=== PATIENT | male | born 1945 | race Caucasian/White ===

== ENCOUNTER 2017-01-06 15:34 | Emergency (ER) | payer BC, MEDICARE ==
[2017-01-06 16:06] VITALS: RESP 18
[2017-01-06] MEDS ORDERED: PROPARACAINE 0.5% OPHTH DROPS 15 ML BTL BOTH EYES STA (16:56)
[2017-01-06] MEDS ORDERED: ERYTHROMYCIN 5 MG/GM OPHTH OINT 3.5 GM TUBE RIGHT EYE SCH (18:00)
--- NOTE | 2017-01-06 18:04 | ED ---
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 Patient reports he thinks a piece of metal went behind his safety goggles and in his eye. Patient wears glasses, not contacts. Reports no change in vision, just eye pain and continuous watering. Reports tetanus is up to date. - Related Data Home Medications Medication Instructions Recorded Confirmed Allopurinol [Zyloprim] 100 mg PO BID 01/26/14 03/05/15 Atenolol 50 mg PO DAILY 01/26/14 03/05/15 Baclofen [Lioresal] 20 mg PO BID 01/26/14 03/05/15 Citalopram Hydrobromide [CeleXA] 20 mg PO DAILY 01/26/14 03/05/15 Clopidogrel Bisulfate [Plavix] 75 mg PO DAILY 01/26/14 03/05/15 Indapamide 2.5 mg PO HS 01/26/14 03/05/15 Levothyroxine Sodium [Synthroid] 75 mcg PO DAILY 01/26/14 03/05/15 Atorvastatin [Lipitor] 40 mg PO HS 03/05/15 03/05/15 Cholecalciferol [Vitamin D3] 2,000 unit PO DAILY 03/05/15 03/05/15 Enalapril [Vasotec] 10 mg PO BID 03/05/15 03/05/15 Furosemide [Lasix] 20 mg PO DAILY 03/05/15 03/05/15 Lansoprazole [Prevacid] 30 mg PO DAILY 03/05/15 03/05/15 Ubidecarenone [Co Q-10] 100 mg PO MOWEFR 03/05/15 03/05/15 Zolpidem [Ambien] 10 mg PO HS PRN 03/05/15 03/05/15 Previous Rx's Medication Instructions Recorded Aspirin 81 mg PO DIRECTED #30 chew 03/06/15 Allergies Allergy/AdvReac Type Severity Reaction Status Date / Time No Known Allergies Allergy Verified 01/06/17 16:06 Review of Systems ROS Statement: Those systems with pertinent positive or pertinent negative responses have been documented in the HPI. ROS Other: All systems not noted in ROS Statement are negative. Constitutional: Denies: chills Eyes: Reports: eye pain ENT: Reports: throat pain. 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 Absent: scleral icterus, periorbital swelling ENT exam: Present: normal exam, mucous membranes moist Neck exam: Present: normal inspection. Absent: tenderness, meningismus, lymphadenopathy Respiratory exam: Present: normal lung sounds bilaterally. Absent: respiratory distress, wheezes, rales, rhonchi, stridor Cardiovascular Exam: Present: regular rate, normal rhythm, normal heart sounds. Absent: systolic murmur, diastolic murmur, rubs, gallop, clicks GI/Abdominal exam: Present: soft, normal bowel sounds. Absent: distended, tenderness, guarding, rebound, rigid Back exam: Present: normal inspection Neurological exam: Present: alert, oriented X3 Psychiatric exam: Present: normal affect, normal mood Skin exam: Present: warm, dry, intact, normal color. 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 Patient reports he thinks a piece of metal went behind his safety goggles and in his eye. Eye was examined under flourescein dye and UV light, evidence of small metal foreign body embedded in cornea at 6 oclock position. Patient eye was examined and using rosa brush it was removed. Patient tolerated procedure well. Was discharged with erythromycin ointment. Return parameters discussed. Disposition Clinical Impression: Foreign body in eyeball, right Disposition: HOME SELF-CARE Condition: Good Instructions: Eye Foreign Body (ED) Additional Instructions: Advised to use ophthalmic ointment every 4 hours for the next 2 days. Patient should follow-up with cylinder machine operator if symptoms continue to persist. Return to the emergency department if any alarming signs or symptoms occur. Referrals: Blanca Avendano DO [Primary Care Provider] - 1-2 days Time of Disposition: 18:04
[2017-01-06 18:12] VITALS: BP 114/65; PULSE 57; TEMP 97.5
== END 2017-01-06 18:24 | disposition home or self-care (01) ==
LOC: EC 15:34
DX: T15.81XA Foreign body in other and multiple parts of external eye, right eye, initial encounter (principal); E78.5 Hyperlipidemia, unspecified; I10 Essential (primary) hypertension; F41.9 Anxiety disorder, unspecified; Z87.891 Personal history of nicotine dependence; Z79.02 Long term (current) use of antithrombotics/antiplatelets; Z79.899 Other long term (current) drug therapy; Z86.73 Personal history of transient ischemic attack (TIA), and cerebral infarction without residual deficits
CPT/HCPCS: 99282

== ENCOUNTER 2017-04-01 06:15 | Emergency (ER) | payer BC, MEDICARE ==
[2017-04-01] MEDS ORDERED: SODIUM CHLORIDE 0.9% 500 ML IV STA (06:29)
[2017-04-01] MEDS ORDERED: ONDANSETRON 4 MG/2 ML VIAL IVP STA (06:29)
[2017-04-01 06:30] LABS: Glucose,Whole Blood 111 mg/dL (75-99)
--- NOTE | 2017-04-01 06:45 | ED ---
General Adult HPI - General Source: patient, family, RN notes reviewed Mode of arrival: wheelchair Limitations: no limitations <Tai Archibald - Last Filed: 04/01/17 07:08> <Gray Rosales - Last Filed: 04/01/17 09:20> - General Chief complaint: Weakness Stated complaint: Weakness, and shaking Time Seen by Provider: 04/01/17 06:19 - History of Present Illness Initial comments: 71-year-old male with history of hypertension and remote history of CVA presents with generalized weakness and lightheadedness. Patient woke up this morning approximate 6 AM. Had these symptoms shortly after waking. Denied headache. Denied focal weakness. Denied chest pain or shortness of breath. Denies abdominal pain. Denied dysuria. Denied fever or chills. Patient states that approximately one month ago he was placed back on furosemide for bilateral lower extremity swelling. He did have a problem with this medication the past causing hypokalemia. Patient denies any other medication changes. Denies any change in his diet. States he had a normal dinner last night. No breakfast this morning. He did complain of some nausea. No vomiting. No rectal bleeding. (Tai Archibald) - Related Data Home Medications Medication Instructions Recorded Confirmed Allopurinol [Zyloprim] 100 mg PO BID 01/26/14 03/05/15 Atenolol 50 mg PO DAILY 01/26/14 03/05/15 Baclofen [Lioresal] 20 mg PO BID 01/26/14 03/05/15 Citalopram Hydrobromide [CeleXA] 20 mg PO DAILY 01/26/14 03/05/15 Clopidogrel Bisulfate [Plavix] 75 mg PO DAILY 01/26/14 03/05/15 Indapamide 2.5 mg PO HS 01/26/14 03/05/15 Levothyroxine Sodium [Synthroid] 75 mcg PO DAILY 01/26/14 03/05/15 Atorvastatin [Lipitor] 40 mg PO HS 03/05/15 03/05/15 Cholecalciferol [Vitamin D3] 2,000 unit PO DAILY 03/05/15 03/05/15 Enalapril [Vasotec] 10 mg PO BID 03/05/15 03/05/15 Furosemide [Lasix] 20 mg PO DAILY 03/05/15 03/05/15 Lansoprazole [Prevacid] 30 mg PO DAILY 03/05/15 03/05/15 Ubidecarenone [Co Q-10] 100 mg PO MOWEFR 03/05/15 03/05/15 Zolpidem [Ambien] 10 mg PO HS PRN 03/05/15 03/05/15 Previous Rx's Medication Instructions Recorded Aspirin 81 mg PO DIRECTED #30 chew 03/06/15 Allergies Allergy/AdvReac Type Severity Reaction Status Date / Time No Known Allergies Allergy Verified 04/01/17 06:20 Review of Systems ROS Other: All systems not noted in ROS Statement are negative. <Tai Archiabld - Last Filed: 04/01/17 07:08> ROS Other: All systems not noted in ROS Statement are negative. <Gray Rosales - Last Filed: 04/01/17 09:20> ROS Statement: Those systems with pertinent positive or pertinent negative responses have been documented in the HPI. 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 History of Any Multi-Drug Resistant Organisms: None Reported Past Surgical History: No Surgical Hx Reported Additional Past Surgical History / Comment(s): cyst Past Psychological History: Anxiety Smoking Status: Former smoker Past Alcohol Use History: None Reported Past Drug Use History: None Reported <Tai Archibald - Last Filed: 04/01/17 07:08> General Exam Limitations: no limitations General appearance: alert, in no apparent distress Head exam: Present: atraumatic, normocephalic Eye exam: Present: normal appearance, PERRL ENT exam: Present: normal exam, mucous membranes dry Neck exam: Present: normal inspection, full ROM. Absent: tenderness, meningismus Respiratory exam: Present: normal lung sounds bilaterally. Absent: respiratory distress, wheezes Cardiovascular Exam: Present: regular rate, normal rhythm GI/Abdominal exam: Present: soft. Absent: distended, tenderness, guarding Extremities exam: Present: normal inspection, full ROM, normal capillary refill , pedal edema. Absent: tenderness Neurological exam: Present: alert, oriented X3, CN II-XII intact, motor sensory deficit Psychiatric exam: Present: normal affect, normal mood Skin exam: Present: warm, dry. Absent: cyanosis, diaphoretic <LyndamariTai Wally - Last Filed: 04/01/17 07:08> Course <RuthielilianaTai Wally - Last Filed: 04/01/17 07:08> <Gray Rosales - Last Filed: 04/01/17 09:20> Vital Signs 04/01/17 04/01/17 04/01/17 06:16 07:05 08:00 Temperature 97.5 F L Pulse Rate 79 96 65 Respiratory 16 18 20 Rate Blood Pressure 140/75 144/86 148/69 O2 Sat by Pulse 95 94 L 97 Oximetry - Reevaluation(s) Reevaluation #1: 04/01/17 06:44 Patient's care is signed out to the oncoming physician. All laboratory studies and chest x-ray is pending at this time. (Tai Archibald) EKG Findings - EKG Comments: EKG Findings:: EKG shows sinus rhythm, first-degree AV block, ventricular rate 76, [place] interval 222, castration 86, QTC 434, there is inverted T waves in V3, this is unchanged from EKG in 2015 <DraganTai Wally - Last Filed: 04/01/17 07:08> Medical Decision Making <RuthielilianaTai Wally - Last Filed: 04/01/17 07:08> - Lab Data Result diagrams: 04/01/17 06:30 04/01/17 06:30 <Gray Rosales - Last Filed: 04/01/17 09:20> - Medical Decision Making Repeat EKG was done the patient's EKG shows sinus rhythm with a first-degree AV block at 60 bpm [place] interval is 214 QRS is 94 Q-T intervals 46 QTC is 431. Patient's EKG shows no ST segment elevation or depression or T-wave abdomen is noted. I reevaluated the patient he was no longer feeling weak he was able to ambulate through the ER and had no complaints at this time.patient stated he thinks his anxiety might have got the best of him this morning (Gray Rosales) - Lab Data Lab Results 04/01/17 04/01/17 04/01/17 Range/Units 06:29 06:30 06:30 WBC 6.6 (3.8-10.6) k/uL RBC 5.26 (4.30-5.90) m/uL Hgb 16.3 (13.0-17.5) gm/dL Hct 50.0 (39.0-53.0) % MCV 95.1 (80.0-100.0) fL MCH 31.0 (25.0-35.0) pg MCHC 32.6 (31.0-37.0) g/dL RDW 14.5 (11.5-15.5) % Plt Count 166 (150-450) k/uL Neutrophils % 60 % Lymphocytes % 23 % Monocytes % 7 % Eosinophils % 7 % Basophils % 1 % Neutrophils # 4.0 (1.3-7.7) k/uL Lymphocytes # 1.5 (1.0-4.8) k/uL Monocytes # 0.5 (0-1.0) k/uL Eosinophils # 0.5 (0-0.7) k/uL Basophils # 0.0 (0-0.2) k/uL PT (9.0-12.0) sec INR (<1.2) APTT (22.0-30.0) sec Sodium (137-145) mmol/L Potassium (3.5-5.1) mmol/L Chloride (98-107) mmol/L Carbon Dioxide (22-30) mmol/L Anion Gap mmol/L BUN (9-20) mg/dL Creatinine (0.66-1.25) mg/dL Est GFR (MDRD) Af Amer (>60 ml/min/1.73 sqM) Est GFR (MDRD) Non-Af (>60 ml/min/1.73 sqM) Glucose (74-99) mg/dL POC Glucose (mg/dL) 111 H (75-99) mg/dL POC Glu Tool Engine Lathe Set Up Operator ID Briana Langston Plasma Lactic Acid Bj (0.7-2.0) mmol/L Calcium (8.4-10.2) mg/dL Phosphorus (2.5-4.5) mg/dL Magnesium (1.6-2.3) mg/dL Total Bilirubin (0.2-1.3) mg/dL AST (17-59) U/L ALT (21-72) U/L Alkaline Phosphatase (38-126) U/L Total Creatine Kinase 293 H (55-170) U/L CK-MB (CK-2) 7.8 H* (0.0-2.4) ng/mL CK-MB (CK-2) Rel Index 2.7 Troponin I <0.012 (0.000-0.034) ng/mL Total Protein (6.3-8.2) g/dL Albumin (3.5-5.0) g/dL TSH (0.465-4.680) mIU/L Urine Color Urine Appearance (Clear) Urine pH (5.0-8.0) Ur Specific [place] (1.001-1.035) Urine Protein (Negative) Urine Glucose (UA) (Negative) Urine Ketones (Negative) Urine Blood (Negative) Urine Nitrite (Negative) Urine Bilirubin (Negative) Urine Urobilinogen (<2.0) mg/dL Ur Leukocyte Esterase (Negative) Urine RBC (0-5) /hpf Urine WBC (0-5) /hpf Urine Mucus (None) /hpf Blood Type Blood Type Recheck Antibody Screen Spec Expiration Date 04/01/17 04/01/17 04/01/17 Range/Units 06:30 06:30 07:05 WBC (3.8-10.6) k/uL RBC (4.30-5.90) m/uL Hgb (13.0-17.5) gm/dL Hct (39.0-53.0) % MCV (80.0-100.0) fL MCH (25.0-35.0) pg MCHC (31.0-37.0) g/dL RDW (11.5-15.5) % Plt Count (150-450) k/uL Neutrophils % % Lymphocytes % % Monocytes % % Eosinophils % % Basophils % % Neutrophils # (1.3-7.7) k/uL Lymphocytes # (1.0-4.8) k/uL Monocytes # (0-1.0) k/uL Eosinophils # (0-0.7) k/uL Basophils # (0-0.2) k/uL PT 11.6 (9.0-12.0) sec INR 1.2 H (<1.2) APTT 25.9 (22.0-30.0) sec Sodium 139 (137-145) mmol/L Potassium 4.6 (3.5-5.1) mmol/L Chloride 105 (98-107) mmol/L Carbon Dioxide 26 (22-30) mmol/L Anion Gap 8 mmol/L BUN 36 H (9-20) mg/dL Creatinine 1.19 (0.66-1.25) mg/dL Est GFR (MDRD) Af Amer >60 (>60 ml/min/1.73 sqM) Est GFR (MDRD) Non-Af 60 (>60 ml/min/1.73 sqM) Glucose 111 H (74-99) mg/dL POC Glucose (mg/dL) (75-99) mg/dL POC Glu Tool Engine Lathe Set Up Operator ID Plasma Lactic Acid Bj 1.4 (0.7-2.0) mmol/L Calcium 9.3 (8.4-10.2) mg/dL Phosphorus 3.2 (2.5-4.5) mg/dL Magnesium 1.6 (1.6-2.3) mg/dL Total Bilirubin 0.5 (0.2-1.3) mg/dL AST 43 (17-59) U/L ALT 45 (21-72) U/L Alkaline Phosphatase 91 (38-126) U/L Total Creatine Kinase (55-170) U/L CK-MB (CK-2) (0.0-2.4) ng/mL CK-MB (CK-2) Rel Index Troponin I (0.000-0.034) ng/mL Total Protein 6.3 (6.3-8.2) g/dL Albumin 3.9 (3.5-5.0) g/dL TSH 3.500 (0.465-4.680) mIU/L Urine Color Urine Appearance (Clear) Urine pH (5.0-8.0) Ur Specific [place] (1.001-1.035) Urine Protein (Negative) Urine Glucose (UA) (Negative) Urine Ketones (Negative) Urine Blood (Negative) Urine Nitrite (Negative) Urine Bilirubin (Negative) Urine Urobilinogen (<2.0) mg/dL Ur Leukocyte Esterase (Negative) Urine RBC (0-5) /hpf Urine WBC (0-5) /hpf Urine Mucus (None) /hpf Blood Type Blood Type Recheck Antibody Screen Spec Expiration Date 04/01/17 04/01/17 Range/Units 07:05 08:36 WBC (3.8-10.6) k/uL RBC (4.30-5.90) m/uL Hgb (13.0-17.5) gm/dL Hct (39.0-53.0) % MCV (80.0-100.0) fL MCH (25.0-35.0) pg MCHC (31.0-37.0) g/dL RDW (11.5-15.5) % Plt Count (150-450) k/uL Neutrophils % % Lymphocytes % % Monocytes % % Eosinophils % % Basophils % % Neutrophils # (1.3-7.7) k/uL Lymphocytes # (1.0-4.8) k/uL Monocytes # (0-1.0) k/uL Eosinophils # (0-0.7) k/uL Basophils # (0-0.2) k/uL PT (9.0-12.0) sec INR (<1.2) APTT (22.0-30.0) sec Sodium (137-145) mmol/L Potassium (3.5-5.1) mmol/L Chloride (98-107) mmol/L Carbon Dioxide (22-30) mmol/L Anion Gap mmol/L BUN (9-20) mg/dL Creatinine (0.66-1.25) mg/dL Est GFR (MDRD) Af Amer (>60 ml/min/1.73 sqM) Est GFR (MDRD) Non-Af (>60 ml/min/1.73 sqM) Glucose (74-99) mg/dL POC Glucose (mg/dL) (75-99) mg/dL POC Glu Tool Engine Lathe Set Up Operator ID Plasma Lactic Acid Bj (0.7-2.0) mmol/L Calcium (8.4-10.2) mg/dL Phosphorus (2.5-4.5) mg/dL Magnesium (1.6-2.3) mg/dL Total Bilirubin (0.2-1.3) mg/dL AST (17-59) U/L ALT (21-72) U/L Alkaline Phosphatase (38-126) U/L Total Creatine Kinase (55-170) U/L CK-MB (CK-2) (0.0-2.4) ng/mL CK-MB (CK-2) Rel Index Troponin I (0.000-0.034) ng/mL Total Protein (6.3-8.2) g/dL Albumin (3.5-5.0) g/dL TSH (0.465-4.680) mIU/L Urine Color Yellow Urine Appearance Clear (Clear) Urine pH 5.5 (5.0-8.0) Ur Specific [place] 1.019 (1.001-1.035) Urine Protein Negative (Negative) Urine Glucose (UA) Negative (Negative) Urine Ketones Negative (Negative) Urine Blood Negative (Negative) Urine Nitrite Negative (Negative) Urine Bilirubin Negative (Negative) Urine Urobilinogen <2.0 (<2.0) mg/dL Ur Leukocyte Esterase Trace H (Negative) Urine RBC 1 (0-5) /hpf Urine WBC 1 (0-5) /hpf Urine Mucus Rare H (None) /hpf Blood Type A Positive Blood Type Recheck CABO Indicated Antibody Screen NEGATIVE Spec Expiration Date 04/04/2017 - 230 Disposition <Tai Archibald - Last Filed: 04/01/17 07:08> Time of Disposition: 09:20 <Gray Rosales - Last Filed: 04/01/17 09:20> Clinical Impression: Generalized weakness, Anxiety Disposition: HOME SELF-CARE Condition: Good Instructions: Weakness (ED) Referrals: Blanca Avendano DO [Primary Care Provider] - 1-2 days
[2017-04-01 07:15] LABS: Basophils % (A) 1 %; CH 32.2; Eosinophils # (A) 0.5 k/uL (0-0.7); Eosinophils % (A) 7 %; HDW 2.46; HGB 16.3 gm/dL (13.0-17.5); Luc # (Auto) 0.16; Luc % (Auto) 2; Lymphocytes # (A) 1.5 k/uL (1.0-4.8); Lymphocytes % (A) 23 %; MCHC 32.6 g/dL (31.0-37.0); MCV 95.1 fL (80.0-100.0); Mean Platelet Volume 8.2; Monocytes # (A) 0.5 k/uL (0-1.0); Monocytes % (A) 7 %; Neutrophils % (A) 60 %; RBC 5.26 m/uL (4.30-5.90); RDW 14.5 % (11.5-15.5); WBC 6.6 k/uL (3.8-10.6)
--- NOTE | 2017-04-01 07:18 | XR ---
EXAMINATION TYPE: XR chest 2V DATE OF EXAM: 04/01/2017 COMPARISON: 03/05/2015 HISTORY: Weakness TECHNIQUE: Frontal and lateral views of the chest are obtained. FINDINGS: Heart and mediastinum are within normal limits. There is coarsening of interstitial markin gs. There is no heart failure. There is no pleural effusion. Bony thorax is intact. IMPRESSION: Pulmonary interstitial fibrosis without change compared to old exam. No heart failure.
[2017-04-01 07:19] LABS: INR 1.2 (<1.2); Partial Thromboplastin Time 25.9 sec (22.0-30.0); Prothrombin Time 11.6 sec (9.0-12.0)
[2017-04-01 07:24] LABS: ALT 45 U/L (21-72); AST 43 U/L (17-59); Alkaline Phosphatase 91 U/L (38-126); Anion Gap 8 mmol/L; Blood Urea Nitrogen 36 mg/dL (9-20); Calcium 9.3 mg/dL (8.4-10.2); Carbon Dioxide 26 mmol/L (22-30); Chloride 105 mmol/L (98-107); Glucose 111 mg/dL (74-99); Magnesium 1.6 mg/dL (1.6-2.3); Non-African American GFR(MDRD) 60 (>60 ml/min/1.73 sqM); Phosphorous 3.2 mg/dL (2.5-4.5); Potassium 4.6 mmol/L (3.5-5.1); Sodium 139 mmol/L (137-145); Total Bilirubin 0.5 mg/dL (0.2-1.3); Total Protein 6.3 g/dL (6.3-8.2)
[2017-04-01 07:42] LABS: Creatine Kinase 293 U/L (55-170)
[2017-04-01 07:55] LABS: Troponin I <0.012 ng/mL (0.000-0.034)
[2017-04-01 08:09] LABS: Creatine Kinase MB 7.8 ng/mL (0.0-2.4)
[2017-04-01 08:56] LABS: Appearance,Urine Clear (Clear); Bilirubin,Urine Negative (Negative); Glucose,Urine (UA) Negative (Negative); Ketones,Urine Negative (Negative); Leukocyte Esterase,Urine Trace (Negative); Mucus,Urine Rare /hpf; Nitrite,Urine Negative (Negative); PH, Urine 5.5 (5.0-8.0); Particle Count 1043; Protein,Urine Negative (Negative); RBC,Urine 1 /hpf (0-5); Specific Gravity,Urine 1.019 (1.001-1.035); UA Billing (MACRO vs. MICRO) MICRO; Urobilinogen,Urine <2.0 mg/dL (<2.0); WBC,Urine 1 /hpf (0-5)
[2017-04-01 08:59] VITALS: RESP 20
[2017-04-01 09:54] VITALS: BP 138/76; PULSE 78; TEMP 98
== END 2017-04-01 09:55 | disposition home or self-care (01) ==
LOC: EC 06:15
DX: R53.1 Weakness (principal); F41.9 Anxiety disorder, unspecified; I10 Essential (primary) hypertension; E78.5 Hyperlipidemia, unspecified; Z86.73 Personal history of transient ischemic attack (TIA), and cerebral infarction without residual deficits; Z87.891 Personal history of nicotine dependence; Z79.01 Long term (current) use of anticoagulants; Z79.899 Other long term (current) drug therapy
CPT/HCPCS: 99285; 96374; 96361 ×2; 36415; 93005; 86900; 86901; 80053; 82550; 82553; 83605; 83735; 84100; 84443; 84484; 85025; 85610; 85730; 86850; 81001; 71020; J2405

== ENCOUNTER 2017-09-18 09:38 | Day surgery (SDC) | payer BC, MEDICARE ==
[2017-09-14 09:01] VITALS: BMI 39.7
[~2017-09-18 09:38] MED LIST: LACTATED RINGERS 1,000 ML IV SCH; LIDOCAINE 1% 20 ML VIAL (10MG/ML) FOR IV START INTRADERMA PRN
[2017-09-18 10:20] VITALS: TEMP 96.7
[2017-09-18] MEDS ORDERED: PROPOFOL 10 MG/ML 20 ML VIAL IV ONE (12:35)
--- NOTE | 2017-09-18 12:35 | P.GSHP ---
History of Present Illness H&P Date: 09/18/17 Chief Complaint: Epigastric pain This a 71-year-old male who presents today for EGD. Patient's had some complaints of epigastric pain. Patient will be evaluated for gastritis. Past Medical History Past Medical History: CVA/TIA, Hyperlipidemia, Hypertension, Prostate Disorder, Thyroid Disorder Additional Past Medical History / Comment(s): States "stomach swells up",left side deficits from previous stroke, hx of gout History of Any Multi-Drug Resistant Organisms: None Reported Past Surgical History: Tonsillectomy Additional Past Surgical History / Comment(s): benign cyst removed Past Anesthesia/Blood Transfusion Reactions: No Reported Reaction Smoking Status: Former smoker - Past Family History Father Family Medical History: Cancer Brother(s) Family Medical History: Cancer Medications and Allergies Home Medications Medication Instructions Recorded Confirmed Type Allopurinol [Zyloprim] 100 mg PO BID 01/26/14 09/18/17 History Baclofen [Lioresal] 20 mg PO BID 01/26/14 09/14/17 History Citalopram Hydrobromide [CeleXA] 20 mg PO DAILY 01/26/14 09/14/17 History Clopidogrel Bisulfate [Plavix] 75 mg PO DAILY 01/26/14 09/14/17 History Levothyroxine Sodium [Synthroid] 75 mcg PO DAILY 01/26/14 09/14/17 History Atorvastatin [Lipitor] 40 mg PO HS 03/05/15 09/14/17 History Cholecalciferol [Vitamin D3] 2,000 unit PO DAILY 03/05/15 09/14/17 History Furosemide [Lasix] 20 mg PO DAILY PRN 03/05/15 09/14/17 History Lansoprazole [Prevacid] 30 mg PO DAILY 03/05/15 09/14/17 History Ubidecarenone [Co Q-10] 100 mg PO MOWEFR 03/05/15 09/14/17 History Aspirin 81 mg PO DAILY 09/14/17 09/14/17 History Atenolol [Tenormin] 25 mg PO DAILY 09/14/17 09/14/17 History Enalapril [Vasotec] 5 mg PO DAILY 09/14/17 09/18/17 History Spironolactone 50 mg PO DAILY 09/14/17 09/14/17 History Tamsulosin [Flomax] 0.4 mg PO DAILY 09/14/17 09/14/17 History Zolpidem Tartrate [Ambien] 5 mg PO HS 09/14/17 09/14/17 History Allergies Allergy/AdvReac Type Severity Reaction Status Date / Time No Known Allergies Allergy Verified 09/18/17 10:20 Surgical - Exam Vital Signs Temp Pulse Resp BP Pulse Ox 96.7 F L 68 16 139/66 95 09/18/17 10:19 09/18/17 10:19 09/18/17 10:19 09/18/17 10:19 09/18/17 10:19 - General well developed, no distress - Eyes PERRL - ENT normal pinna - Neck no masses - Respiratory normal expansion - Cardiovascular Rhythm: regular - Abdomen Abdomen: soft, non tender Assessment and Plan Assessment: Epigastric pain. We'll perform EGD for gastritis.
--- NOTE | 2017-09-18 12:47 | P.OP ---
Date of Procedure: 09/18/17 Preoperative Diagnosis: Epigastric pain Postoperative Diagnosis: Antral gastritis Moderate size sliding hiatal hernia Esophagitis Procedure(s) Performed: EGD Anesthesia: MAC Surgeon: Tyrese De La Garza Pathology: other (Antrum, esophagus) Condition: stable Disposition: PACU Description of Procedure: The patient's placed on the endoscopy table in the lateral position. He received IV sedation. The gastroscope placed oropharynx passed in the esophagus and into the stomach. The scope was then placed through the pylorus. The first and second portion of the duodenum appeared normal. The scope was then brought back the antrum and this appeared mildly inflamed. A biopsies performed. The scope was then retroflexed and the remainder of the stomach appeared normal. There was a moderate size sliding hiatal hernia. The GE junction was at 38 cm. The distal esophagus was mildly inflamed a biopsies performed. The proximal esophagus appeared normal. Scope was withdrawn for patient.
[2017-09-18 13:22] VITALS: BP 138/82; PULSE 53; RESP 18
== END 2017-09-18 13:35 | disposition home or self-care (01) ==
LOC: ORWHC2ENDO 09:38
PROVIDERS: ATTEND Surgery
DX: K29.50 Unspecified chronic gastritis without bleeding (principal); K21.0 Gastro-esophageal reflux disease with esophagitis; K44.9 Diaphragmatic hernia without obstruction or gangrene; I10 Essential (primary) hypertension; E78.5 Hyperlipidemia, unspecified; E07.9 Disorder of thyroid, unspecified; N40.0 Benign prostatic hyperplasia without lower urinary tract symptoms; M10.9 Gout, unspecified; E66.01 Morbid (severe) obesity due to excess calories; Z68.39 Body mass index [BMI] 39.0-39.9, adult; Z79.02 Long term (current) use of antithrombotics/antiplatelets; Z79.82 Long term (current) use of aspirin; Z79.899 Other long term (current) drug therapy; Z87.891 Personal history of nicotine dependence; Z86.73 Personal history of transient ischemic attack (TIA), and cerebral infarction without residual deficits
CPT/HCPCS: 43239; J2704; 88305

== ENCOUNTER 2018-07-23 09:04 | Day surgery (SDC) | payer BC ==
[2018-07-19 12:33] VITALS: BMI 38.7
[2018-07-23 09:24] VITALS: TEMP 97.8
[2018-07-23] MEDS ORDERED: LACTATED RINGERS 1,000 ML IV ONE (09:32)
[2018-07-23] MEDS ORDERED: PROPOFOL 10 MG/ML 20 ML VIAL IV ONE (10:03)
--- NOTE | 2018-07-23 10:06 | P.GSHP ---
History of Present Illness H&P Date: 07/23/18 Chief Complaint: Screening colonoscopy This a 72-year-old male who presents today for screening colonoscopy. Patient denies a any significant GI complaints. Past Medical History Past Medical History: CVA/TIA, Hyperlipidemia, Hypertension, Prostate Disorder, Thyroid Disorder Additional Past Medical History / Comment(s): left side weakness from previous stroke, hx of gout History of Any Multi-Drug Resistant Organisms: None Reported Past Surgical History: Tonsillectomy Additional Past Surgical History / Comment(s): pilonidal cyst removed, colonoscopy Past Anesthesia/Blood Transfusion Reactions: No Reported Reaction Smoking Status: Former smoker - Past Family History Father Family Medical History: Cancer Brother(s) Family Medical History: Cancer Medications and Allergies Home Medications Medication Instructions Recorded Confirmed Type Allopurinol [Zyloprim] 100 mg PO BID 01/26/14 07/19/18 History Baclofen [Lioresal] 20 mg PO BID 01/26/14 07/19/18 History Citalopram Hydrobromide [CeleXA] 20 mg PO DAILY 01/26/14 07/19/18 History Clopidogrel Bisulfate [Plavix] 75 mg PO DAILY 01/26/14 07/19/18 History Levothyroxine Sodium [Synthroid] 75 mcg PO DAILY 01/26/14 07/19/18 History Atorvastatin [Lipitor] 40 mg PO HS 03/05/15 07/19/18 History Cholecalciferol [Vitamin D3] 2,000 unit PO DAILY 03/05/15 07/19/18 History Furosemide [Lasix] 20 mg PO DAILY 03/05/15 07/19/18 History Lansoprazole [Prevacid] 30 mg PO DAILY 03/05/15 07/19/18 History Ubidecarenone [Co Q-10] 100 mg PO MOWEFR 03/05/15 07/19/18 History Aspirin 81 mg PO DAILY 09/14/17 07/19/18 History Atenolol [Tenormin] 25 mg PO DAILY 09/14/17 07/19/18 History Enalapril [Vasotec] 5 mg PO DAILY 09/14/17 07/19/18 History Tamsulosin [Flomax] 0.4 mg PO DAILY 09/14/17 07/19/18 History Gabapentin [Neurontin] 100 mg PO BID 07/19/18 07/19/18 History traZODone HCL 50 mg PO HS 07/19/18 07/19/18 History Allergies Allergy/AdvReac Type Severity Reaction Status Date / Time No Known Allergies Allergy Verified 07/19/18 12:18 Surgical - Exam Vital Signs Temp Pulse Resp BP Pulse Ox 97.8 F 78 18 165/81 98 07/23/18 09:21 07/23/18 09:21 07/23/18 09:21 07/23/18 09:21 07/23/18 09:21 - General well developed, no distress - Eyes PERRL - ENT normal pinna - Neck no masses - Respiratory normal expansion - Cardiovascular Rhythm: regular - Abdomen Abdomen: soft, non tender Assessment and Plan Assessment: We'll perform screening colonoscopy.
--- NOTE | 2018-07-23 10:18 | P.OP ---
Date of Procedure: 07/23/18 Preoperative Diagnosis: Screening colonoscopy Postoperative Diagnosis: Diverticulosis Procedure(s) Performed: Colonoscopy Anesthesia: MAC Surgeon: Tyrese De La Garza Pathology: none sent Condition: stable Disposition: PACU Description of Procedure: The patient's placed on the endoscopy table in the lateral position. He received IV sedation. Digital rectal exam was performed which revealed no abnormalities. The flexible colonoscope was then placed patient anus and passed throughout the entire colon. The ileocecal valve was visualized. The cecum, ascending and transverse colon appeared normal. The descending and sigmoid colon there is mild diverticular changes. Scope was then brought back the rectum and this appeared normal. Scope was withdrawn for patient.
[2018-07-23 10:59] VITALS: BP 128/72; PULSE 65; RESP 18
== END 2018-07-23 11:15 | disposition home or self-care (01) ==
LOC: ORWHC2ENDO 09:04
PROVIDERS: ATTEND Surgery
DX: Z12.11 Encounter for screening for malignant neoplasm of colon (principal); K57.30 Diverticulosis of large intestine without perforation or abscess without bleeding; I10 Essential (primary) hypertension; E78.5 Hyperlipidemia, unspecified; I69.354 Hemiplegia and hemiparesis following cerebral infarction affecting left non-dominant side; E03.9 Hypothyroidism, unspecified; K21.9 Gastro-esophageal reflux disease without esophagitis; N42.9 Disorder of prostate, unspecified; M10.9 Gout, unspecified; Z79.899 Other long term (current) drug therapy; Z79.02 Long term (current) use of antithrombotics/antiplatelets; Z79.82 Long term (current) use of aspirin; Z79.890 Hormone replacement therapy; Z87.891 Personal history of nicotine dependence
CPT/HCPCS: J2704; G0121

== ENCOUNTER 2018-08-12 21:18 | Emergency (ER) | payer BC ==
[2018-08-12 21:50] VITALS: RESP 18
--- NOTE | 2018-08-12 22:27 | ED ---
General Adult HPI - General Chief complaint: Recheck/Abnormal Lab/Rx Stated complaint: Leg swelling Time Seen by Provider: 08/12/18 21:54 Source: patient Mode of arrival: ambulatory Limitations: no limitations - History of Present Illness Initial comments: 72-year-old male presenting with right lower extremity swelling and pain has been present for the last 3 days. The patient denies any history of DVT/PE, active cancer, recent surgery, or hormone replacement therapy. He states that he has numbness in his feet from a stroke 12 years prior and that he recently twisted his ankle and injured his foot while walking. He denies any fevers chills, chest pain, shortness of breath. - Related Data Home Medications Medication Instructions Recorded Confirmed Allopurinol [Zyloprim] 100 mg PO BID 01/26/14 07/19/18 Baclofen [Lioresal] 20 mg PO BID 01/26/14 07/19/18 Citalopram Hydrobromide [CeleXA] 20 mg PO DAILY 01/26/14 07/19/18 Clopidogrel Bisulfate [Plavix] 75 mg PO DAILY 01/26/14 07/19/18 Levothyroxine Sodium [Synthroid] 75 mcg PO DAILY 01/26/14 07/19/18 Atorvastatin [Lipitor] 40 mg PO HS 03/05/15 07/19/18 Cholecalciferol [Vitamin D3] 2,000 unit PO DAILY 03/05/15 07/19/18 Furosemide [Lasix] 20 mg PO DAILY 03/05/15 07/19/18 Lansoprazole [Prevacid] 30 mg PO DAILY 03/05/15 07/19/18 Ubidecarenone [Co Q-10] 100 mg PO MOWEFR 03/05/15 07/19/18 Aspirin 81 mg PO DAILY 09/14/17 07/19/18 Atenolol [Tenormin] 25 mg PO DAILY 09/14/17 07/19/18 Enalapril [Vasotec] 5 mg PO DAILY 09/14/17 07/19/18 Tamsulosin [Flomax] 0.4 mg PO DAILY 09/14/17 07/19/18 Gabapentin [Neurontin] 100 mg PO BID 07/19/18 07/19/18 traZODone HCL 50 mg PO HS 07/19/18 07/19/18 Previous Rx's Medication Instructions Recorded Cephalexin [Keflex] 500 mg PO Q6HR 7 Days #28 cap 08/12/18 Allergies Allergy/AdvReac Type Severity Reaction Status Date / Time No Known Allergies Allergy Verified 08/12/18 21:50 Review of Systems ROS Statement: Those systems with pertinent positive or pertinent negative responses have been documented in the HPI. Review of Systems Constitutional: Denies fever, chills Eyes: Denies change in vision, Denies pain Ears, nose, mouth, throat: Denies headaches, Denies sore throat Cardiovascular: Denies chest pain. Denies palpitations Respiratory: Denies shortness of breath, Denies cough Gastrointestinal: Denies abdominal pain. Denies nausea, vomiting, diarrhea. Genitourinary: Denies hematuria, Denies infections Musculoskeletal: Positive right leg swelling and pain. Integumentary: Denies rash Neurological: Denies headache, focal weakness, focal numbness Psychiatric: Denies anxiety, Denies depression Hematologic/Lymphatic: Denies easy bleeding or bruising ROS Other: All systems not noted in ROS Statement are negative. Past Medical History Past Medical History: CVA/TIA, Hyperlipidemia, Hypertension, Prostate Disorder, Thyroid Disorder Additional Past Medical History / Comment(s): left side weakness from previous stroke, hx of gout History of Any Multi-Drug Resistant Organisms: None Reported Past Surgical History: Tonsillectomy Additional Past Surgical History / Comment(s): pilonidal cyst removed, colonoscopy Past Anesthesia/Blood Transfusion Reactions: No Reported Reaction Past Psychological History: Anxiety Smoking Status: Former smoker Past Alcohol Use History: None Reported Past Drug Use History: None Reported - Past Family History Father Family Medical History: Cancer Brother(s) Family Medical History: Cancer General Exam - General Exam Comments Initial Comments: General: Awake, alert, No acute Distress HENT: Normocephalic. Atraumatic Eyes: PERRL. EOMI. No scleral icterus. No injected conjunctiva Neck: Full ROM Chest/Lungs: Clear to auscultation bilaterally. No wheezing, rhonchi, or rales Cardiac: Regular rate, rhythm. No murmurs or rubs Abdomen/GI: Soft, nontender, nondistended. No rebound, guarding, or rigidity. Musculoskeletal: Full ROM. Swelling of the right lower extremity up to mid calf. 2+ DP pulses bilaterally. Warmth without erythema to the lateral aspect of the right lower extremity superior to the lateral malleolus. Skin: Warm, dry, intact Neurologic: A/Ox3, no weakness, no sensory deficit, no abnormal gait, no coordination deficit Limitations: no limitations Course Vital Signs 08/12/18 08/13/18 21:47 00:02 Temperature 98.5 F 97.9 F Pulse Rate 66 63 Respiratory 18 18 Rate Blood Pressure 146/92 127/76 O2 Sat by Pulse 96 98 Oximetry Medical Decision Making - Medical Decision Making 72-year-old male presenting with right lower extremity swelling and pain. Initial exam the patient is awake, alert, no acute distress. VSS. Patient is nontoxic and well-appearing. His RLE ultrasound was negative for DVT. His x- rays were negative for acute process. There was some soft tissue swelling seen on the x-ray. Patient was given a Kelfex starter pack for cellulitis. He was given return to ER instructions and told to follow up with his primary care doctor this week for recheck.No further emergent workup indicated. Stable for discharge at this time. Disposition Clinical Impression: Cellulitis Disposition: HOME SELF-CARE Condition: Good Instructions: Cellulitis (ED) Prescriptions: Cephalexin [Keflex] 500 mg PO Q6HR 7 Days #28 cap Is patient prescribed a controlled substance at d/c from ED?: No Referrals: Blanca Avendano DO [Primary Care Provider] - 1-2 days
--- NOTE | 2018-08-12 23:00 | US ---
EXAMINATION TYPE: US venous doppler duplex LE RT DATE OF EXAM: 08/12/2018 10:23 PM COMPARISON: NONE CLINICAL HISTORY: Pain. Pt states right leg swelling x 5-6 days, no known prior DVT SIDE PERFORMED: Right TECHNIQUE: The lower extremity deep venous system is examined utilizing real time linear array sonog hazel with graded compression, doppler sonography and color-flow sonography. VESSELS IMAGED: External Iliac Vein (EIV) Common Femoral Vein Deep Femoral Vein Greater Saphenous Vein * Femoral Vein Popliteal Vein Small Saphenous Vein * Proximal Calf Veins (* superficial vessels) Right Leg: Negative for DVT IMPRESSION: No deep venous thrombosis in the right leg.
--- NOTE | 2018-08-12 23:33 | XR ---
EXAMINATION TYPE: XR ankle complete RT DATE OF EXAM: 08/12/2018 COMPARISON: NONE HISTORY: Leg swelling TECHNIQUE: 3 views FINDINGS: There are plantar and Achilles calcaneal spurs. Ankle mortise is anatomic. There is mild so ft tissue swelling around the ankle joint. There is calcification at the medial malleolus consistent with old injury. There is spurring of the anterior malleolus. IMPRESSION: No acute bony abnormality. Calcaneal spurring. Evidence of old injury.
--- NOTE | 2018-08-12 23:34 | XR ---
EXAMINATION TYPE: XR tibia fibula RT DATE OF EXAM: 08/12/2018 COMPARISON: NONE HISTORY: Leg swelling TECHNIQUE: 2 views FINDINGS: There is mild subcutaneous edema. There is some spurring at the medial and lateral malleolu s of the ankle. There is mild osteoarthritis medial joint space of the knee. I see no acute fracture . IMPRESSION: Soft tissue swelling. No acute bony abnormality.
--- NOTE | 2018-08-12 23:35 | XR ---
EXAMINATION TYPE: XR foot complete RT DATE OF EXAM: 08/12/2018 COMPARISON: NONE HISTORY: Leg swelling TECHNIQUE: 3 views FINDINGS: There are plantar and Achilles calcaneal spurs. Metatarsals are intact. I see no fracture n or dislocation. There are no erosions. IMPRESSION: Calcaneal spurring. No fracture seen.
[2018-08-12] MEDS ORDERED: CEPHALEXIN 500MG STARTER PACK 4 CAP BTL PO STA (23:46)
[2018-08-13 00:04] VITALS: BP 127/76; PULSE 63; TEMP 97.9
== END 2018-08-13 00:02 | disposition home or self-care (01) ==
LOC: EC 21:18
DX: L03.115 Cellulitis of right lower limb (principal); E78.5 Hyperlipidemia, unspecified; I10 Essential (primary) hypertension; E07.9 Disorder of thyroid, unspecified; M10.9 Gout, unspecified; F41.9 Anxiety disorder, unspecified; Z87.438 Personal history of other diseases of male genital organs; Z86.73 Personal history of transient ischemic attack (TIA), and cerebral infarction without residual deficits; Z87.891 Personal history of nicotine dependence; Z79.02 Long term (current) use of antithrombotics/antiplatelets; Z79.82 Long term (current) use of aspirin; Z79.899 Other long term (current) drug therapy
CPT/HCPCS: 99284

== ENCOUNTER 2018-11-12 21:01 | Emergency (ER) | payer BC, OTHER ==
[2018-11-12 21:12] VITALS: TEMP 98.4
--- NOTE | 2018-11-12 21:46 | ED ---
General Adult HPI - General Chief complaint: Shortness of Breath Stated complaint: SOB, High BP Time Seen by Provider: 11/12/18 21:23 Source: patient Mode of arrival: ambulatory Limitations: no limitations - History of Present Illness Initial comments: Dictation was produced using [employer] dictation software. please excuse any grammatical, word or spelling errors. Chief Complaint: 72-year-old male past medical history of CVA, hypertension, dyslipidemia presents with elevated blood pressure and vague left lower quadrant abdominal pain. History of Present Illness: 72-year-old male. He is here today because he checked his blood pressure. He states he checked his blood pressure is he's been feeling slightly short of breath. Patient checked his blood pressure approximately 2 hours prior to arrival and systolic measured 200. Checked it again systolic measured 160. She states is been short of breath for the last 2 days. He does have multiple comorbidities. Does have a history of hypertension for which she takes 3 medications for. Patient otherwise feels well. Denies any significant chest pain. Does complain of some vague abdominal pain. The ROS documented in this emergency department record has been reviewed and confirmed by me. Those systems with pertinent positive or negative responses h ave been documented in the HPI. All other systems are other negative and/or noncontributory. PHYSICAL EXAM: General Impression: Alert and oriented x3, not in acute distress HEENT: Normocephalic atraumatic, extra-ocular movements intact, pupils equal and reactive to light bilaterally, mucous membranes moist. Cardiovascular: Heart regular rate and rhythm, S1&S2 audible, no murmurs, rubs or gallops Chest: Lungs clear to auscultation bilaterally, no rhonchi, no wheeze, no rales Abdomen: Bowel sounds present, abdomen soft, non-tender, non-distended, no organomegaly Musculoskeletal: Pulses present and equal in all extremities, no peripheral edema Motor: no focal deficits noted Neurological: CN II-XII grossly intact, no focal motor or sensory deficits noted Skin: Intact with no visualized rashes Psych: Normal affect and mood ED course: 72-year-old male presents with chief complaint of elevated blood pressure. He does have some mild shortness of breath that spent ongoing for 2-3 days. He also has some mild left lower quadrant abdominal pain. Vital signs upon arrival are within acceptable limits. Patient is well-appearing. He does not have any real complaints. Screening labs, aortoiliac ultrasound and chest x-ray was obtained. Findings were all within acceptable limits. Patient resting comfortably. Serial blood pressures were obtained with stable measurements. The emergency department for several hours with stable medical condition. Patient's symptoms consistent with asymptomatic hypertension. Patient told to continue his usual medications. Advised follow-up with primary care physician upon discharge. Vicki. Patient told that if he has elevated blood pressure in the setting of headache, strokelike symptoms, chest pain or shortness of breath come to the emergency department otherwise if he is asymptomatic and has elevated blood pressure he should take a note of it and bring this information to his PCP. EKG interpretation: Ventricular rate 67, normal sinus rhythm, WA interval 182, care is 90, QTC 462. No WA prolongation, no QTC prolongation, no ST or T-wave changes noted. Overall, this EKG is unremarkable - Related Data Home Medications Medication Instructions Recorded Confirmed Allopurinol [Zyloprim] 100 mg PO BID 01/26/14 11/12/18 Baclofen [Lioresal] 20 mg PO BID 01/26/14 11/12/18 Citalopram Hydrobromide [CeleXA] 20 mg PO DAILY 01/26/14 11/12/18 Clopidogrel Bisulfate [Plavix] 75 mg PO DAILY 01/26/14 11/12/18 Levothyroxine Sodium [Synthroid] 75 mcg PO DAILY 01/26/14 11/12/18 Atorvastatin [Lipitor] 40 mg PO HS 03/05/15 11/12/18 Cholecalciferol [Vitamin D3] 2,000 unit PO DAILY 03/05/15 11/12/18 Furosemide [Lasix] 20 mg PO DAILY 03/05/15 11/12/18 Lansoprazole [Prevacid] 30 mg PO DAILY 03/05/15 11/12/18 Ubidecarenone [Co Q-10] 100 mg PO MOWEFR 03/05/15 11/12/18 Aspirin 81 mg PO SUMOWEFR 09/14/17 11/12/18 Atenolol [Tenormin] 25 mg PO DAILY 09/14/17 11/12/18 Enalapril [Vasotec] 5 mg PO DAILY 09/14/17 11/12/18 Tamsulosin [Flomax] 0.4 mg PO DAILY 09/14/17 11/12/18 traZODone HCL 50 mg PO HS 07/19/18 11/12/18 Allergies Allergy/AdvReac Type Severity Reaction Status Date / Time No Known Allergies Allergy Verified 11/12/18 21:42 Review of Systems ROS Statement: Those systems with pertinent positive or pertinent negative responses have been documented in the HPI. ROS Other: All systems not noted in ROS Statement are negative. Past Medical History Past Medical History: CVA/TIA, Hyperlipidemia, Hypertension, Prostate Disorder, Thyroid Disorder Additional Past Medical History / Comment(s): left side weakness from previous stroke, hx of gout, History of Any Multi-Drug Resistant Organisms: None Reported Past Surgical History: Tonsillectomy Additional Past Surgical History / Comment(s): pilonidal cyst removed, c olonoscopy, Past Anesthesia/Blood Transfusion Reactions: No Reported Reaction Past Psychological History: Anxiety Smoking Status: Former smoker Past Alcohol Use History: None Reported Past Drug Use History: None Reported - Past Family History Father Family Medical History: Cancer Brother(s) Family Medical History: Cancer General Exam Limitations: no limitations Course Vital Signs 11/12/18 11/12/18 11/12/18 21:07 21:30 22:44 Temperature 98.4 F Pulse Rate 77 65 63 Respiratory 19 20 18 Rate Blood Pressure 168/101 149/87 141/75 O2 Sat by Pulse 94 L 99 94 L Oximetry Medical Decision Making - Lab Data Result diagrams: 11/12/18 21:30 11/12/18 21:30 Lab Results 11/12/18 11/12/18 11/12/18 Range/Units 21:30 21:30 21:30 WBC 6.8 (3.8-10.6) k/uL RBC 5.42 (4.30-5.90) m/uL Hgb 16.3 (13.0-17.5) gm/dL Hct 48.7 (39.0-53.0) % MCV 89.9 (80.0-100.0) fL MCH 30.1 (25.0-35.0) pg MCHC 33.5 (31.0-37.0) g/dL RDW 14.2 (11.5-15.5) % Plt Count 171 (150-450) k/uL Neutrophils % 64 % Lymphocytes % 22 % Monocytes % 7 % Eosinophils % 5 % Basophils % 0 % Neutrophils # 4.4 (1.3-7.7) k/uL Lymphocytes # 1.5 (1.0-4.8) k/uL Monocytes # 0.5 (0-1.0) k/uL Eosinophils # 0.4 (0-0.7) k/uL Basophils # 0.0 (0-0.2) k/uL Sodium 140 (137-145) mmol/L Potassium 4.0 (3.5-5.1) mmol/L Chloride 106 (98-107) mmol/L Carbon Dioxide 28 (22-30) mmol/L Anion Gap 6 mmol/L BUN 21 H (9-20) mg/dL Creatinine 1.06 (0.66-1.25) mg/dL Est GFR (CKD-EPI)AfAm 80 (>60 ml/min/1.73 sqM) Est GFR (CKD-EPI)NonAf 69 (>60 ml/min/1.73 sqM) Glucose 120 H (74-99) mg/dL Calcium 9.2 (8.4-10.2) mg/dL Troponin I (0.000-0.034) ng/mL NT-Pro-B Natriuret Pep 208 pg/mL 11/12/18 Range/Units 21:30 WBC (3.8-10.6) k/uL RBC (4.30-5.90) m/uL Hgb (13.0-17.5) gm/dL Hct (39.0-53.0) % MCV (80.0-100.0) fL MCH (25.0-35.0) pg MCHC (31.0-37.0) g/dL RDW (11.5-15.5) % Plt Count (150-450) k/uL Neutrophils % % Lymphocytes % % Monocytes % % Eosinophils % % Basophils % % Neutrophils # (1.3-7.7) k/uL Lymphocytes # (1.0-4.8) k/uL Monocytes # (0-1.0) k/uL Eosinophils # (0-0.7) k/uL Basophils # (0-0.2) k/uL Sodium (137-145) mmol/L Potassium (3.5-5.1) mmol/L Chloride (98-107) mmol/L Carbon Dioxide (22-30) mmol/L Anion Gap mmol/L BUN (9-20) mg/dL Creatinine (0.66-1.25) mg/dL Est GFR (CKD-EPI)AfAm (>60 ml/min/1.73 sqM) Est GFR (CKD-EPI)NonAf (>60 ml/min/1.73 sqM) Glucose (74-99) mg/dL Calcium (8.4-10.2) mg/dL Troponin I <0.012 (0.000-0.034) ng/mL NT-Pro-B Natriuret Pep pg/mL Disposition Clinical Impression: Hypertension Disposition: HOME SELF-CARE Condition: Good Instructions (If sedation given, give patient instructions): Hypertension (ED) Is patient prescribed a controlled substance at d/c from ED?: No Referrals: Blanca Avendano DO [Primary Care Provider] - 1-2 days Time of Disposition: 23:58
[2018-11-12 21:57] LABS: Basophils % (A) 0 %; Eosinophils # (A) 0.4 k/uL (0-0.7); Eosinophils % (A) 5 %; HCT 48.7 % (39.0-53.0); HGB 16.3 gm/dL (13.0-17.5); Lymphocytes # (A) 1.5 k/uL (1.0-4.8); Lymphocytes % (A) 22 %; MCH 30.1 pg (25.0-35.0); MCHC 33.5 g/dL (31.0-37.0); MCV 89.9 fL (80.0-100.0); Mean Platelet Volume 7.6; Monocytes # (A) 0.5 k/uL (0-1.0); Monocytes % (A) 7 %; Neutrophils # (A) 4.4 k/uL (1.3-7.7); Neutrophils % (A) 64 %; Platelet Count 171 k/uL (150-450); RBC 5.42 m/uL (4.30-5.90); RDW 14.2 % (11.5-15.5); WBC 6.8 k/uL (3.8-10.6)
[2018-11-12 22:06] LABS: Calcium 9.2 mg/dL (8.4-10.2)
--- NOTE | 2018-11-12 22:27 | XR ---
EXAM: XR Chest, 2 Views CLINICAL HISTORY: ITS.REASON XR Reason: Pain TECHNIQUE: Frontal and lateral views of the chest. COMPARISON: 04/01/17 FINDINGS: Lungs: Coarse interstitial lung markings bilaterally are stable. No consolidation. Pleural space: Unremarkable. No pneumothorax. Heart: Unremarkable. No cardiomegaly. Mediastinum: Unremarkable. Bones/joints: Unremarkable. IMPRESSION: Stable coarse interstitial lung markings; no acute findings.
[2018-11-12 22:46] VITALS: RESP 18
--- NOTE | 2018-11-12 23:51 | US ---
EXAM: US Retroperitoneal Limited, Aorta CLINICAL HISTORY: ITS.REASON US Reason: Pain TECHNIQUE: Real-time ultrasound of the retroperitoneum (limited) with image documentation. COMPARISON: No relevant prior studies available. FINDINGS: Aorta: Proximal dimension is 2.7 x 2 cm. Mid dimension is 2 x 1.7 cm. Distal dimension is 2.4 x 1.6 cm. Bifurcation is obscured by bowel gas. IMPRESSION: Slight ectasia of the distal aorta measuring 2.4 cm.
[2018-11-13 00:14] VITALS: BP 119/68; PULSE 62
== END 2018-11-13 00:10 | disposition home or self-care (01) ==
LOC: EC 21:01
DX: I10 Essential (primary) hypertension (principal); R10.32 Left lower quadrant pain; R06.02 Shortness of breath; E78.5 Hyperlipidemia, unspecified; N42.9 Disorder of prostate, unspecified; M10.9 Gout, unspecified; F41.9 Anxiety disorder, unspecified; Z87.891 Personal history of nicotine dependence; Z79.02 Long term (current) use of antithrombotics/antiplatelets; Z79.82 Long term (current) use of aspirin; Z79.890 Hormone replacement therapy; Z79.899 Other long term (current) drug therapy; Z86.73 Personal history of transient ischemic attack (TIA), and cerebral infarction without residual deficits
CPT/HCPCS: 36415; 71046; 80048; 83880; 84484; 85025; 93005; 93979; 99285

== ENCOUNTER → 2020-08-05 | Outpatient (CLI) | payer MEDICARE, MEDICAID ==
--- NOTE | 2020-08-05 09:41 | MR ---
EXAMINATION TYPE: MR cervical spine wo con DATE OF EXAM: 08/05/2020 COMPARISON: None HISTORY: 74-year-old male M50.01 Cervical disc disorder, myelopathy TECHNIQUE: Multiplanar, multisequence images of the cervical spine were acquired. FINDINGS: No craniocervical junction abnormality, predental space widening, or prevertebral soft tissue swellin g. Vertebral body heights are preserved and alignment is maintained. Moderate multilevel degenerative disc disease with desiccated discs and discussed by complex multiple levels. Some mixed Modic endplate changes present at C5-C6 with mild disc space narrowing here and a t C6/C7 as well. Ligamentum flavum thickening may cervical spine. Multilevel facet and uncovertebral joint arthropathy . No suspicious bone marrow replacement. At C2-C3, facet and uncovertebral joint arthropathy with mild bilateral neuroforaminal stenosis. No s kal canal stenosis. At C3-C4, hypertrophic facet and uncovertebral joint arthropathy. Changes result in moderate right an d mild left neuroforaminal stenosis. No significant spinal canal stenosis. At C4-C5, there is disc osteophyte complex with hypertrophic facet arthropathy. Mild right neuroforam inal stenosis. Additional ligamentum flavum thickening. Mild overall narrowing of the spinal canal bu t no significant cord abutment or cord flattening. At C5-C6, large broad-based disc osteophyte complex with contiguous uncovertebral joint and facet art hropathy. Ligamentum flavum thickening. Moderate to severe left and moderate right neuroforaminal naheed nosis. There is mild to moderate spinal canal stenosis with abutment and slight flattening of the lashon tral cord but no katina cord compression. No myelopathic signal change. At C6/C7, left-sided uncovertebral joint and facet arthropathy resulting in moderate left neural fora corin stenosis. No significant spinal canal stenosis. At C7-T1, small discussed by complex with facet arthropathy. No significant canal stenosis. Mild left neural foraminal narrowing. IMPRESSION: 1. Moderate multilevel degenerative disc disease with a ligamentum flavum thickening and facet/uncove rtebral joint hypertrophic arthropathy. 2. Changes result in a mild to moderate spinal canal stenosis at C5-C6 with abutment and flattening o f the ventral cord at this level but no katina cord compression or myelopathic cord signal change. 3. Mild overall narrowing of the spinal canal at C4-C5. 4. Variable neural foraminal stenoses as outlined above, moderate to severe on the left and moderate on the right at C5-C6, moderate on the right at C3-C4, and moderate on the left at C6-C7.
== END | disposition home or self-care (01) ==
LOC: RADMRIMAIN 08:01
PROVIDERS: ATTEND Family Medicine
DX: M48.02 Spinal stenosis, cervical region (principal); M50.00 Cervical disc disorder with myelopathy, unspecified cervical region; M46.02 Spinal enthesopathy, cervical region; M12.88 Other specific arthropathies, not elsewhere classified, other specified site
CPT/HCPCS: 72141

== ENCOUNTER 2021-01-17 21:47 | Emergency (ER) | payer MEDICARE, MEDICAID ==
[2021-01-17 21:54] VITALS: RESP 18; TEMP 97.9
--- NOTE | 2021-01-17 22:50 | XR ---
EXAMINATION TYPE: XR chest 2V DATE OF EXAM: 01/17/2021 COMPARISON: 11/12/2018 HISTORY: Short of breath TECHNIQUE: 2 views FINDINGS: There is some coarse interstitial density in the mid and lower lung meadows. Heart size is f airly normal. There are chest leads. There are no hilar masses. IMPRESSION: Increased interstitial density similar to old exam and consistent with pulmonary fibrosis . No heart failure.
[2021-01-17 22:53] LABS: Basophils # (A) 0.1 k/uL (0-0.2); Basophils % (A) 1 %; Eosinophils # (A) 0.4 k/uL (0-0.7); Eosinophils % (A) 6 %; HCT 45.6 % (39.0-53.0); HGB 15.6 gm/dL (13.0-17.5); Lymphocytes # (A) 1.4 k/uL (1.0-4.8); Lymphocytes % (A) 21 %; MCH 30.9 pg (25.0-35.0); MCHC 34.3 g/dL (31.0-37.0); MCV 90.1 fL (80.0-100.0); Mean Platelet Volume 7.6; Monocytes # (A) 0.5 k/uL (0-1.0); Monocytes % (A) 8 %; Neutrophils # (A) 4.4 k/uL (1.3-7.7); Neutrophils % (A) 64 %; Platelet Count 171 k/uL (150-450); RBC 5.06 m/uL (4.30-5.90); RDW 13.3 % (11.5-15.5); WBC 6.9 k/uL (3.8-10.6)
[2021-01-17 23:02] LABS: ALT 49 U/L (4-49); AST 60 U/L (17-59); African American GFR (CKD) >90 (>60 ml/min/1.73 sqM); Albumin 3.9 g/dL (3.5-5.0); Alkaline Phosphatase 122 U/L (38-126); Anion Gap 6 mmol/L; Blood Urea Nitrogen 20 mg/dL (9-20); Calcium 9.5 mg/dL (8.4-10.2); Carbon Dioxide 30 mmol/L (22-30); Chloride 102 mmol/L (98-107); Glucose 115 mg/dL (74-99); Magnesium 1.9 mg/dL (1.6-2.3); Non-African American GFR(CKD) 83 (>60 ml/min/1.73 sqM); Potassium 4.3 mmol/L (3.5-5.1); Sodium 138 mmol/L (137-145); Total Bilirubin 0.5 mg/dL (0.2-1.3); Total Protein 6.4 g/dL (6.3-8.2)
--- NOTE | 2021-01-17 23:04 | CT ---
EXAMINATION TYPE: CT brain wo con DATE OF EXAM: 01/17/2021 COMPARISON: 01/27/2014 HISTORY: WEAKNESS CT DLP: 1111.4 mGycm Automated exposure control for dose reduction was used. Ventricles and sulci appear normal for age. There is no mass effect nor midline shift. There is no si gn of intracranial hemorrhage. Skull base is intact. There is normal aeration of the mastoid sinuses. Calvarium is intact. IMPRESSION: Negative CT scan of the brain. No adverse change.
--- NOTE | 2021-01-17 23:10 | ED ---
General Adult HPI - General Chief complaint: Neuro Symptoms/Deficit Stated complaint: elevated BP, history of stroke Time Seen by Provider: 01/17/21 21:52 Source: patient, family Mode of arrival: wheelchair Limitations: no limitations - History of Present Illness Initial comments: 75 year-old male patient presents to the emergency department for evaluation of generalized weakness, left arm tingling, and elevated blood pressure. Patient states symptoms started about an hour ago. States that he was feeling unwell so he checked his blood pressure and it was 190/90. States this is very high for him so he presented here for further evaluation. Patient states he felt a tight sensation in both arms and both legs. All limbs felt shaky and weak. Denies any difficulty with speech. Denies headache or changes to his vision. denies any facial drooping. 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 Side some mild dizziness and nausea. Patient denies any recent rash, fever, chills, cough, shortness of breath, chest pain, abdominal pain, vomiting, diarrhea, constipation, back pain, hematuria, dysuria, urinary urgency, urinary frequency, or any other complaints. - Related Data Home Medications Medication Instructions Recorded Confirmed Allopurinol [Zyloprim] 100 mg PO BID 01/26/14 01/17/21 Baclofen [Lioresal] 20 mg PO BID 01/26/14 01/17/21 Clopidogrel Bisulfate [Plavix] 75 mg PO DAILY 01/26/14 01/17/21 Levothyroxine Sodium [Synthroid] 75 mcg PO DAILY 01/26/14 01/17/21 Lansoprazole [Prevacid] 30 mg PO DAILY 03/05/15 01/17/21 Enalapril [Vasotec] 5 mg PO DAILY 09/14/17 01/17/21 Tamsulosin [Flomax] 0.4 mg PO DAILY 09/14/17 01/17/21 atenoloL [Tenormin] 25 mg PO DAILY 09/14/17 01/17/21 traZODone HCL 50 - 100 mg PO HS PRN 07/19/18 01/17/21 Atorvastatin Calcium [Lipitor] 80 mg PO HS 01/17/21 01/17/21 Furosemide [Lasix] 40 mg PO DAILY 01/17/21 01/17/21 Latanoprost/Pf [Latanoprost 0.005% 1 drop BOTH EYES HS 01/17/21 01/17/21 Eye Drop] metFORMIN HCL [metFORMIN HCL ER] 750 mg PO DIRECTED 01/17/21 01/17/21 Allergies Allergy/AdvReac Type Severity Reaction Status Date / Time No Known Allergies Allergy Verified 01/17/21 23:24 Review of Systems ROS Statement: Those systems with pertinent positive or pertinent negative responses have been documented in the HPI. ROS Other: All systems not noted in ROS Statement are negative. Past Medical History Past Medical History: CVA/TIA, Hyperlipidemia, Hypertension, Prostate Disorder, Thyroid Disorder Additional Past Medical History / Comment(s): left side weakness from previous stroke, hx of gout, History of Any Multi-Drug Resistant Organisms: None Reported Past Surgical History: Tonsillectomy Additional Past Surgical History / Comment(s): pilonidal cyst removed, colonoscopy, Past Anesthesia/Blood Transfusion Reactions: No Reported Reaction Past Psychological History: Anxiety Smoking Status: Former smoker Past Alcohol Use History: None Reported Past Drug Use History: None Reported - Past Family History Father Family Medical History: Cancer Brother(s) Family Medical History: Cancer General Exam Limitations: no limitations General appearance: alert, in no apparent distress, other (This is a well- developed, well-nourished adult male patient in no acute distress. Vital signs upon presentation are temperature 97.9F, pulse 80, respirations 18, blood pressure 166/88, pulse ox 94% on room air.) Eye exam: Present: normal appearance, PERRL, EOMI. Absent: scleral icterus, conjunctival injection, nystagmus, periorbital swelling ENT exam: Present: normal exam, normal oropharynx, mucous membranes moist Respiratory exam: Present: normal lung sounds bilaterally. Absent: respiratory distress, wheezes, rales, rhonchi, stridor Cardiovascular Exam: Present: regular rate, normal rhythm, normal heart sounds. Absent: systolic murmur, diastolic murmur, rubs, gallop, clicks GI/Abdominal exam: Present: soft, normal bowel sounds. Absent: distended, tenderness, guarding, rebound, rigid Neurological exam: Present: alert, oriented X3, CN II-XII intact Expanded Speech: Present: fluid speech Cranial nerves: EOM's Intact: Normal, Nystagmus: Normal Cerebellar function: Finger to Nose: Normal, Heel to Patel: Normal Upper motor neuron: Ranjit Neglect: Normal, Pronator Drift: Normal Motor strength exam: RUE: 5, LUE: 5, RLE: 5, LLE: 5 Eye Response: (4) open spontaneously Motor Response: (6) obeys commands Verbal Response: (5) oriented Lee Total: 15 Psychiatric exam: Present: normal affect, normal mood Skin exam: Present: warm, dry, intact, normal color. Absent: rash Course Vital Signs 01/17/21 01/17/21 21:50 22:58 Temperature 97.9 F Pulse Rate 80 71 Respiratory 18 18 Rate Blood Pressure 166/88 126/87 O2 Sat by Pulse 94 L 94 L Oximetry EKG Findings - EKG Comments: EKG Findings:: EKG obtained at 2211 shows sinus rhythm with first-degree AV block. Ventricular to 74, MS interval 216, QRS duration 98, QT 398, QTC 441. No evidence of ST elevation or depression. Medical Decision Making - Medical Decision Making 75-year-old male patient presented to the emergency department today for evaluation of elevated blood pressure and weakness. Patient states he had weakness and tightness to both arms and both legs with some tingling in the left arm. Also reported mild dizziness and nausea. Physical examination is unremarkable. NIH was 0. He is neurologically intact with no focal deficits. Labs reviewed and are unremarkable. He did have elevated white blood cells in the urine this will be sent for culture. CT brain negative. Chest x-ray shows redemonstrated pulmonary fibrosis. Blood pressures did improve. I did discuss findings and results with the patient and his . They'll be discharged follow-up with the primary care physician for recheck in 1-2 days. Return parameters were discussed in detail. They verbalize understanding and agree with this plan. Case discussed with my attending Dr. Quick. - Lab Data Result diagrams: 01/17/21 22:30 01/17/21 22:30 Lab Results 01/17/21 01/17/21 01/17/21 Range/Units 22:30 22:30 22:30 WBC 6.9 (3.8-10.6) k/uL RBC 5.06 (4.30-5.90) m/uL Hgb 15.6 (13.0-17.5) gm/dL Hct 45.6 (39.0-53.0) % MCV 90.1 (80.0-100.0) fL MCH 30.9 (25.0-35.0) pg MCHC 34.3 (31.0-37.0) g/dL RDW 13.3 (11.5-15.5) % Plt Count 171 (150-450) k/uL MPV 7.6 Neutrophils % 64 % Lymphocytes % 21 % Monocytes % 8 % Eosinophils % 6 % Basophils % 1 % Neutrophils # 4.4 (1.3-7.7) k/uL Lymphocytes # 1.4 (1.0-4.8) k/uL Monocytes # 0.5 (0-1.0) k/uL Eosinophils # 0.4 (0-0.7) k/uL Basophils # 0.1 (0-0.2) k/uL PT 10.5 (9.0-12.0) sec INR 1.0 (<1.2) APTT 24.5 (22.0-30.0) sec Sodium 138 (137-145) mmol/L Potassium 4.3 (3.5-5.1) mmol/L Chloride 102 (98-107) mmol/L Carbon Dioxide 30 (22-30) mmol/L Anion Gap 6 mmol/L BUN 20 (9-20) mg/dL Creatinine 0.88 (0.66-1.25) mg/dL Est GFR (CKD-EPI)AfAm >90 (>60 ml/min/1.73 sqM) Est GFR (CKD-EPI)NonAf 83 (>60 ml/min/1.73 sqM) Glucose 115 H (74-99) mg/dL Plasma Lactic Acid Bj (0.7-2.0) mmol/L Calcium 9.5 (8.4-10.2) mg/dL Magnesium 1.9 (1.6-2.3) mg/dL Total Bilirubin 0.5 (0.2-1.3) mg/dL AST 60 H (17-59) U/L ALT 49 (4-49) U/L Alkaline Phosphatase 122 (38-126) U/L Troponin I (0.000-0.034) ng/mL Total Protein 6.4 (6.3-8.2) g/dL Albumin 3.9 (3.5-5.0) g/dL Urine Color Urine Appearance (Clear) Urine pH (5.0-8.0) Ur Specific [place] (1.001-1.035) Urine Protein (Negative) Urine Glucose (UA) (Negative) Urine Ketones (Negative) Urine Blood (Negative) Urine Nitrite (Negative) Urine Bilirubin (Negative) Urine Urobilinogen (<2.0) mg/dL Ur Leukocyte Esterase (Negative) Urine RBC (0-5) /hpf Urine WBC (0-5) /hpf Ur Squamous Epith Cells (0-4) /hpf Urine Bacteria (None) /hpf 01/17/21 01/17/21 01/17/21 Range/Units 22:30 22:30 23:14 WBC (3.8-10.6) k/uL RBC (4.30-5.90) m/uL Hgb (13.0-17.5) gm/dL Hct (39.0-53.0) % MCV (80.0-100.0) fL MCH (25.0-35.0) pg MCHC (31.0-37.0) g/dL RDW (11.5-15.5) % Plt Count (150-450) k/uL MPV Neutrophils % % Lymphocytes % % Monocytes % % Eosinophils % % Basophils % % Neutrophils # (1.3-7.7) k/uL Lymphocytes # (1.0-4.8) k/uL Monocytes # (0-1.0) k/uL Eosinophils # (0-0.7) k/uL Basophils # (0-0.2) k/uL PT (9.0-12.0) sec INR (<1.2) APTT (22.0-30.0) sec Sodium (137-145) mmol/L Potassium (3.5-5.1) mmol/L Chloride (98-107) mmol/L Carbon Dioxide (22-30) mmol/L Anion Gap mmol/L BUN (9-20) mg/dL Creatinine (0.66-1.25) mg/dL Est GFR (CKD-EPI)AfAm (>60 ml/min/1.73 sqM) Est GFR (CKD-EPI)NonAf (>60 ml/min/1.73 sqM) Glucose (74-99) mg/dL Plasma Lactic Acid Bj 1.4 (0.7-2.0) mmol/L Calcium (8.4-10.2) mg/dL Magnesium (1.6-2.3) mg/dL Total Bilirubin (0.2-1.3) mg/dL AST (17-59) U/L ALT (4-49) U/L Alkaline Phosphatase (38-126) U/L Troponin I <0.012 (0.000-0.034) ng/mL Total Protein (6.3-8.2) g/dL Albumin (3.5-5.0) g/dL Urine Color Yellow Urine Appearance Clear (Clear) Urine pH 6.5 (5.0-8.0) Ur Specific [place] 1.015 (1.001-1.035) Urine Protein Negative (Negative) Urine Glucose (UA) Negative (Negative) Urine Ketones Negative (Negative) Urine Blood Negative (Negative) Urine Nitrite Negative (Negative) Urine Bilirubin Negative (Negative) Urine Urobilinogen 2.0 (<2.0) mg/dL Ur Leukocyte Esterase Large H (Negative) Urine RBC 3 (0-5) /hpf Urine WBC 28 H (0-5) /hpf Ur Squamous Epith Cells <1 (0-4) /hpf Urine Bacteria Rare H (None) /hpf - Radiology Data Radiology results: report reviewed, image reviewed 2 views of the chest are obtained. Report is reviewed in its entirety. Impression by Dr. Jeronimo shows increased interstitial densities similar to old exam consistent with pulmonary fibrosis. No heart failure. CT brain without contrast was obtained. Report is reviewed in its entirety. Impression by Dr. Jeronimo shows negative computed tomography scan of the brain. No adverse change. Disposition Clinical Impression: High blood pressure, Weakness Disposition: HOME SELF-CARE Condition: Good Instructions (If sedation given, give patient instructions): Weakness (ED) Additional Instructions: Follow-up with your primary care physician for recheck in 1-2 days. Return to the emergency department for any new, worsening, or concerning symptoms. Is patient prescribed a controlled substance at d/c from ED?: No Referrals: Blanca Avendano DO [Primary Care Provider] - 1-2 days Time of Disposition: 23:51
[2021-01-17 23:16] LABS: Partial Thromboplastin Time 24.5 sec (22.0-30.0); Prothrombin Time 10.5 sec (9.0-12.0)
[2021-01-17 23:25] LABS: Appearance,Urine Clear (Clear); Bacteria,Urine Rare /hpf; Bilirubin,Urine Negative (Negative); Blood,Urine Negative (Negative); Color,Urine Yellow; Glucose,Urine (UA) Negative (Negative); Ketones,Urine Negative (Negative); Leukocyte Esterase,Urine Large (Negative); Nitrite,Urine Negative (Negative); PH, Urine 6.5 (5.0-8.0); Protein,Urine Negative (Negative); RBC,Urine 3 /hpf (0-5); Specific Gravity,Urine 1.015 (1.001-1.035); Squamous Epithelial Cell,Urine <1 /hpf (0-4); WBC,Urine 28 /hpf (0-5)
[2021-01-18 00:02] VITALS: BP 142/71; PULSE 70
== END 2021-01-18 00:12 | disposition home or self-care (01) ==
LOC: EC 21:47
DX: I10 Essential (primary) hypertension (principal); R53.1 Weakness; R20.2 Paresthesia of skin; R06.02 Shortness of breath; R11.0 Nausea; R42 Dizziness and giddiness; E78.5 Hyperlipidemia, unspecified; Z86.73 Personal history of transient ischemic attack (TIA), and cerebral infarction without residual deficits; Z87.891 Personal history of nicotine dependence; Z79.84 Long term (current) use of oral hypoglycemic drugs; Z79.899 Other long term (current) drug therapy
CPT/HCPCS: 36415; 70450; 71046; 80053; 81001; 83605; 83735; 84484; 85025; 85610; 85730; 87086; 93005; 99285

== ENCOUNTER 2023-01-09 09:28 | Emergency (ER) | payer MEDICARE, MEDICAID ==
[2023-01-09 09:36] VITALS: TEMP 98.2
[2023-01-09] MEDS ORDERED: LIDOCAINE 5% PATCH TOPICAL STA (11:42)
[2023-01-09] MEDS ORDERED: ACETAMINOPHEN TAB 500 MG TAB PO STA (11:44)
--- NOTE | 2023-01-09 11:44 | ED ---
General Adult HPI - General Chief complaint: Back Pain/Injury Stated complaint: back pain, trouble walking Time Seen by Provider: 01/09/23 10:59 Source: patient, RN notes reviewed Mode of arrival: ambulatory Limitations: no limitations - History of Present Illness Initial comments: 77-year-old male presents emergency department chief complaint of back pain and neck pain. Patient states that he has a history of back pain but has recently increased in the past 3 weeks. No new trauma. He states that he is still able to get around but has some pain in his left side and low back. Denies fever, chills, saddle anesthesia, urinary retention, loss of bowel or bladder function, dysuria, frequency. He states he is taking Advil for pain last time he took it was 1 pill last night. Patient does not want a shot of pain medication. Patient was requesting an x-ray of his neck and his low back. - Related Data Home Medications Medication Instructions Recorded Confirmed Baclofen [Lioresal] 20 mg PO BID 01/26/14 01/17/21 Clopidogrel Bisulfate [Plavix] 75 mg PO DAILY 01/26/14 01/17/21 Levothyroxine Sodium [Synthroid] 75 mcg PO DAILY 01/26/14 01/17/21 allopurinoL [Zyloprim] 100 mg PO BID 01/26/14 01/17/21 Lansoprazole [Prevacid] 30 mg PO DAILY 03/05/15 01/17/21 Enalapril [Vasotec] 5 mg PO DAILY 09/14/17 01/17/21 Tamsulosin [Flomax] 0.4 mg PO DAILY 09/14/17 01/17/21 atenoloL [Tenormin] 25 mg PO DAILY 09/14/17 01/17/21 traZODone HCL 50 - 100 mg PO HS PRN 07/19/18 01/17/21 Atorvastatin Calcium [Lipitor] 80 mg PO HS 01/17/21 01/17/21 Furosemide [Lasix] 40 mg PO DAILY 01/17/21 01/17/21 Latanoprost/Pf [Latanoprost 0.005% 1 drop BOTH EYES HS 01/17/21 01/17/21 Eye Drop] metFORMIN HCL [metFORMIN HCL ER] 750 mg PO DIRECTED 01/17/21 01/17/21 Previous Rx's Medication Instructions Recorded Lidocaine 5% Patch [Lidoderm 5% 1 patch TOPICAL DAILY #7 patch 01/09/23 Patch] Allergies Allergy/AdvReac Type Severity Reaction Status Date / Time No Known Allergies Allergy Verified 01/09/23 09:36 Review of Systems ROS Statement: Those systems with pertinent positive or pertinent negative responses have been documented in the HPI. ROS Other: All systems not noted in ROS Statement are negative. Past Medical History Past Medical History: CVA/TIA, Hyperlipidemia, Hypertension, Prostate Disorder, Thyroid Disorder Additional Past Medical History / Comment(s): left side weakness from previous stroke, hx of gout, Back and neck problems. History of Any Multi-Drug Resistant Organisms: None Reported Past Surgical History: Tonsillectomy Additional Past Surgical History / Comment(s): pilonidal cyst removed, col onoscopy, Past Anesthesia/Blood Transfusion Reactions: No Reported Reaction Past Psychological History: Anxiety Smoking Status: Former smoker Past Alcohol Use History: None Reported Past Drug Use History: None Reported - Past Family History Father Family Medical History: Cancer Brother(s) Family Medical History: Cancer General Exam Limitations: no limitations General appearance: alert, in no apparent distress Head exam: Present: atraumatic, normocephalic, normal inspection Eye exam: Present: normal appearance ENT exam: Present: normal exam, mucous membranes moist Neck exam: Present: normal inspection. Absent: tenderness, meningismus, lymphadenopathy Respiratory exam: Present: normal lung sounds bilaterally. Absent: respiratory distress, wheezes, rales, rhonchi, stridor Cardiovascular Exam: Present: regular rate, normal rhythm, normal heart sounds. Absent: systolic murmur, diastolic murmur, rubs, gallop, clicks GI/Abdominal exam: Present: soft, normal bowel sounds. Absent: distended, tenderness, guarding, rebound, rigid Extremities exam: Present: normal inspection, full ROM, normal capillary refill. Absent: tenderness, pedal edema, joint swelling, calf tenderness Back exam: Present: normal inspection, tenderness, paraspinal tenderness, vertebral tenderness (Lumbar spine). Absent: CVA tenderness (R), CVA tenderness (L), muscle spasm Neurological exam: Present: alert, oriented X3, CN II-XII intact Psychiatric exam: Present: normal affect, normal mood Course Vital Signs 01/09/23 01/09/23 09:33 13:13 Temperature 98.2 F Pulse Rate 75 72 Respiratory 20 18 Rate Blood Pressure 144/81 141/80 O2 Sat by Pulse 96 99 Oximetry Medical Decision Making - Medical Decision Making Was pt. sent in by a medical professional or institution ([facility], [employer], urgent care, hospital, or usp...) When possible be specific @ -No Did you speak to anyone other than the patient for history (EMS, parent, family, police, friend...)? What history was obtained from this source @ -No Did you review nursing and triage notes (agree or disagree)? Why? @ -I reviewed and agree with nursing and triage notes Were old charts reviewed (outside hosp., previous admission, EMS record, old E KG, old radiological studies, urgent care reports/EKG's, usp records)? Report findings @ -Previous neck x-ray was compared to that obtained today Differential Diagnosis (chest pain, altered mental status, abdominal pain women, abdominal pain men, vaginal bleeding, weakness, fever, dyspnea, syncope, headache, dizziness, GI bleed, back pain, seizure, CVA, palpatations, mental health, musculoskeletal)? @ -Differential Musculoskeletal Muscular strain, contusion, ligament sprain, fracture, arthritis, septic arthritis, bursitis, cellulitis, muscle spasm, nerve compression, DVT, arterial occlusion, herpes zoster, electrolyte abnormality, tumor.... This is not meant to be in all inclusive list EKG interpreted by me (3pts min.). @ -None X-rays interpreted by me (1pt min.). @ -X-ray of cervical spine was obtained which showed Grade 1 anterior listhesis of C4 on C5, vertebral body height maintained, moderate distress appearing in sprain of C5, C6, C7 X-ray of lumbar spine was obtained which showed no acute fracture, there is a grade 1 retrolisthesis of L2 on L3 and L3 on L4 along with grade 1 anterior listhesis of L4 on L5 which are redemonstrated from his prior lumbar spine x-ray in 2013, there is no loss of vertebral body height, there is moderate disc space narrowing and moderate anterior spurring with endplate sclerosis CT interpreted by me (1pt min.). @ -None done U/S interpreted by me (1pt. min.). @ -None done What testing was considered but not performed or refused? (CT, X-rays, U/S, labs)? Why? @ -None What meds were considered but not given or refused? Why? @ -None Did you discuss the management of the patient with other professionals (professionals i.e. , PA, [employer], lab, RT, psych nurse, social insurance specialist, lead security officer, teacher, patrol community service officer, catalytic case operator)? Give summary @ -No Was smoking cessation discussed for >3mins.? @ -No Was critical care preformed (if so, how long)? @ -No Were there social determinants of health that impacted care today? How? (Homelessness, low income, unemployed, alcoholism, drug addiction, transportation, low edu. Level, literacy, decrease access to med. care, retirement, rehab)? @ -No Was there de-escalation of care discussed even if they declined (Discuss DNR or withdrawal of care, Hospice)? DNR status @ -No What co-morbidities impacted this encounter? (DM, HTN, Smoking, COPD, CAD, Cancer, CVA, ARF, Chemo, Hep., AIDS, mental health diagnosis, sleep apnea, morbid obesity)? @ -None Was patient admitted / discharged? Hospital course, mention meds given and route, prescriptions, significant lab abnormalities, going to OR and other pertinent info. @ -Discharge. Patient presented to emergency department chief complaint of low back pain. Patient is requesting of an x-ray of the cervical spine as well as the lumbar spine x-ray. Patient is not having any red flag symptoms at this time including urinary retention, loss of bowel or bladder function, fever, chills, saddle anesthesia. Patient was given a dose of Tylenol and a lidocaine patch as he was requesting no IM pain medication and no muscle relaxers. His x- rays showed extensive osteoarthritis which could be causing his pain. Patient was advised to follow up with his primary care provider and take Tylenol Motrin as needed for pain along with applying the lidocaine patches for 12 hours on and 12 hours off. return precautions to the emergency department with any red flag symptoms that were discussed. Patient discharged in stable condition. Case discussed my attending, Dr. Burnett Undiagnosed new problem with uncertain prognosis? @ -No Drug Therapy requiring intensive monitoring for toxicity (Heparin, Nitro, Insulin, Cardizem)? @ -No Were any procedures done? @ -No Diagnosis/symptom? @ -Low-back pain Acute, or Chronic, or Acute on Chronic? @ -Acute on chronic Uncomplicated (without systemic symptoms) or Complicated (systemic symptoms)? @ -Uncomplicated Side effects of treatment? @ -No Exacerbation, Progression, or Severe Exacerbation? @ -No Poses a threat to life or bodily function? How? (Chest pain, [place], [place], pneumonia, PE, COPD, DKA, ARF, appy, cholecystitis, CVA, Diverticulitis, Homicidal, Suicidal, threat to staff... and all critical care pts) @ -No Disposition Clinical Impression: Low back pain Disposition: HOME SELF-CARE Condition: Stable Instructions (If sedation given, give patient instructions): Acute Low Back Pain (ED) Additional Instructions: Take Tylenol as needed for pain. Follow-up with your primary care physician. Please return to the emergency department for new or worsening symptoms. Prescriptions: Lidocaine 5% Patch [Lidoderm 5% Patch] 1 patch TOPICAL DAILY #7 patch Is patient prescribed a controlled substance at d/c from ED?: No Referrals: Blanca Avendano DO [Primary Care Provider] - 1-2 days Time of Disposition: 12:59
--- NOTE | 2023-01-09 12:08 | XR ---
EXAMINATION TYPE: XR lumbar spine 2 or 3V DATE OF EXAM: 01/09/2023 CLINICAL HISTORY: Low back pain. Difficulty walking. TECHNIQUE: Frontal and lateral images of the lumbar spine are obtained. COMPARISON: Lumbar spine x-ray 2013 FINDINGS: There are 5 lumbar type vertebral bodies redemonstrated. No acute displaced fracture. Ther e is levoconvex scoliosis centered at L3 level redemonstrated. There is grade 1 retrolisthesis of L2 on L3 and L3 on L4 along with grade 1 anterolisthesis of L4 on L5 are all redemonstrated. Vertebral b juli heights are preserved. Moderate disc space narrowing with moderate anterior spurring and endplate sclerosis L3-L4 level is more prominent from prior. Additional moderate multilevel anterior and late ral spurring is redemonstrated. Multilevel facet arthropathy greatest in the lower lumbar spine is re demonstrated. Moderate overlying arterial vascular calcification is again seen IMPRESSION: As above.
--- NOTE | 2023-01-09 12:10 | XR ---
EXAMINATION TYPE: XR cervical spine comp DATE OF EXAM: 01/09/2023 TECHNIQUE: Frontal, lateral, oblique, swimmers, and open mouth view of the cervical spine are obtaine d. HISTORY: pain COMPARISON: CT cervical spine 2013 FINDINGS: The cervical spine is visualized in its entirety from C1 thru the top of T1 level, there i s now slight grade 1 anterolisthesis C4 on C5. The pre-vertebral soft tissue appears within normal l imits. The C1-C2 articulation is within normal limits on the open mouth view. Vertebral body heights are maintained. There is moderate disc space narrowing and spurring C5-C6 and C6-C7 levels. The obli que images show multilevel uncovertebral facet degenerative changes causing multilevel bilateral neur al foraminal narrowing. At least moderate overlying arterial vascular calcification carotid bulb leve l is noted. IMPRESSION: As above.
[2023-01-09 13:15] VITALS: BP 141/80; PULSE 72; RESP 18
== END 2023-01-09 13:15 | disposition home or self-care (01) ==
LOC: EC 09:28
DX: M54.50 Low back pain, unspecified (principal); I10 Essential (primary) hypertension; E78.5 Hyperlipidemia, unspecified; E07.9 Disorder of thyroid, unspecified; F41.9 Anxiety disorder, unspecified; Z86.73 Personal history of transient ischemic attack (TIA), and cerebral infarction without residual deficits; Z87.891 Personal history of nicotine dependence; Z79.890 Hormone replacement therapy; Z79.899 Other long term (current) drug therapy; Z79.02 Long term (current) use of antithrombotics/antiplatelets
CPT/HCPCS: 72050; 72100; 99284

== ENCOUNTER → 2023-05-15 | Outpatient (CLI) | payer MEDICARE, MEDICAID ==
[2023-05-15 16:26] LABS: BUN/Creat Ratio 18.67 Ratio (12.00-20.00); Blood Urea Nitrogen 16.8 mg/dL (9.0-27.0); Calcium 9.6 mg/dL (8.7-10.3); Carbon Dioxide 28.3 mmol/L (21.6-31.8); Chloride 101 mmol/L (96-109); Glucose 232 mg/dL (70-110); Potassium 4.6 mmol/L (3.5-5.5); Sodium 140 mmol/L (135-145)
== END | disposition home or self-care (01) ==
LOC: LABWHC1 09:08
PROVIDERS: ATTEND Family Medicine
DX: N28.9 Disorder of kidney and ureter, unspecified (principal)
CPT/HCPCS: 36415; 80048

== ENCOUNTER → 2024-03-08 | Outpatient (CLI) | payer MEDICARE, MEDICAID ==
--- NOTE | 2024-03-08 09:43 | MR ---
EXAMINATION TYPE: MR angio head wo con DATE OF EXAM: 03/08/2024 COMPARISON: CT brain 05/10/2023, 01/17/2021. HISTORY: Diplopia, headache TECHNIQUE: Time of flight images focusing on the [place] were performed without contrast. FINDINGS: There is no evidence for focal stenosis, large vessel occlusion, or discrete aneurysm. Le ft vertebral artery is dominant. IMPRESSION: Motion artifact limits evaluation. No evidence for focal stenosis, occlusion or aneurysm.
--- NOTE | 2024-03-08 10:24 | MR ---
INDICATION: Patient age:Male; 78 years old; Reason for study: H53.2 DIPLOPIA G44.219 HEADACHE; [facility]. COMPARISON: MRA head 02/23/2024, CT brain 05/10/2023, 01/17/2021. TECHNIQUE: Multi planar, multi sequence imaging was performed through the brain. The patient was then given 10.5 cc of Gadavist intravenously and multi planar, T1 fat-saturation images were obtained. FINDINGS: Motion degraded examination. The cool-white junctions, ventricular system, basal cisterns appear unremarkable. Diffusion-weighted imaging shows no evidence of restricted diffusion to suggest acute/subacute infarct. Intracranial art erial flow voids are maintained. Midline structures show no abnormality. Age-appropriate cerebral vol ume loss. Incidental cavum septum lucidum et verge. Patchy areas of high T2/FLAIR signal intensity ar e seen within the periventricular white matter. The susceptibility weighted images a few scattered pu nctate foci of susceptibility artifact related to prior microhemorrhage throughout the cerebral paren chyma. After administration of gadolinium, no abnormal enhancement is seen. The bone marrow signal is within normal limits. Bilateral aphakia. Bilateral mastoid effusions with r ight greater than left. Moderate mucosal thickening of ethmoid sinuses. IMPRESSION: 1. No evidence of intracranial mass, acute/subacute infarct, or abnormal enhancement. 2. Nonspecific white matter changes, likely related to small vessel ischemic disease. 3. Bilateral mastoid effusions with right greater than left. Correlate for mastoiditis. 4. Ethmoid mucosal sinus disease.
== END | disposition home or self-care (01) ==
LOC: RADMRIMAIN 06:24
PROVIDERS: ATTEND Ophthalmology
DX: G44.219 Episodic tension-type headache, not intractable (principal); H74.8X3 Other specified disorders of middle ear and mastoid, bilateral; H53.2 Diplopia; J32.2 Chronic ethmoidal sinusitis; R90.82 White matter disease, unspecified
CPT/HCPCS: 70544; 70553; A9585